=== PATIENT | female | born 1955 | race Caucasian/White ===

== ENCOUNTER 2018-02-09 12:08 | Emergency (ER) | payer MEDICARE ==
[~2018-02-09] VITALS: Ht 165.1 cm; Wt 90.7 kg
[~2018-02-09 12:08] MED LIST: ALBUTEROL2.5 MG/3 M IH; IBUPROFEN200 M1 PO; PREDNISONE20 MG PO; PRILOSEC40 MG PO; STOOL SOFTENER1 EAC2 PO; SYNTHROID100 MCG PO; TRAZODONE HCL100 MG PO; WELLBUTRIN SR150 MG PO
[2018-02-09] MEDS ORDERED: FLUOXETINE HCL20 MG PO (12:24)
[2018-02-09] MEDS ORDERED: SIMVASTATIN40 MG PO (12:24)
[2018-02-09] MEDS ORDERED: KETOROLAC TROME10 MG PO (13:04)
== END 2018-02-09 13:15 | disposition home or self-care (01) ==
LOC: ED 12:08
DX: M25.562 Pain in left knee (principal); J45.909 Unspecified asthma, uncomplicated; I10 Essential (primary) hypertension; Z86.73 Personal history of transient ischemic attack (TIA), and cerebral infarction without residual deficits; Z87.891 Personal history of nicotine dependence; Z88.0 Allergy status to penicillin; Z88.2 Allergy status to sulfonamides; Z79.899 Other long term (current) drug therapy
CPT/HCPCS: 93971; 99284

== ENCOUNTER → 2018-09-08 | Emergency (ER) | payer MEDICARE ==
[~2018-09-08] VITALS: Ht 165.1 cm; Wt 90.7 kg
[~2018-09-08] MED LIST changes: +ASPIRIN81 MG PO; +CARVEDILOL12.5 MG PO; +CLOPIDOGREL75 MG PO; +FLUOXETINE HCL20 MG PO; +KETOROLAC TROME10 MG PO; +LASIX20 MG PO; +LIPITOR20 MG PO; +LOSARTAN-HCTZ1 EAC2 PO; +NORVASC2.5 MG PO; +PANTOPRAZOLE SO40 MG PO; +PROZAC10 MG PO; +RESTASIS1 DROP OD; +SIMVASTATIN40 MG PO
--- NOTE | 2018-09-10 00:52 | EKG ---
[facility] [address] [facility] [place] [address] Signed Normal sinus rhythm Normal ECG No previous ECGs available Confirmed by LEONID HERNANDEZ MD ([id number]) on 09/10/2018 12:52:26 AM Electronically Signed By: LEONID HERNANDEZ MD 09/10/18 0052 PATIENT NAME: ZACH MERCADO Electrocardiogram DATE OF : 57 PHYSICIAN: LEONID HERNANDEZ MD REPORT #: [id number] REPORT IS CONFIDENTIAL AND NOT TO BE RELEASED WITHOUT AUTHORIZATION
== END ==
LOC: ED 20:08
DX: I20.0 Unstable angina (principal); I10 Essential (primary) hypertension; J44.9 Chronic obstructive pulmonary disease, unspecified; Z86.73 Personal history of transient ischemic attack (TIA), and cerebral infarction without residual deficits; Z87.891 Personal history of nicotine dependence; Z88.0 Allergy status to penicillin; Z88.2 Allergy status to sulfonamides; Z79.899 Other long term (current) drug therapy
CPT/HCPCS: 71045; 80053; 84484; 85025; 85379; 93005; 93010; 96374; 96375; 99285-25; J2405; J3010

== ENCOUNTER 2018-09-22 08:02 | Emergency (ER) | payer MEDICARE ==
[~2018-09-22] VITALS: Ht 165.1 cm; Wt 90.7 kg
[~2018-09-22 08:02] MED LIST changes: -ASPIRIN81 MG PO; -CARVEDILOL12.5 MG PO; -CLOPIDOGREL75 MG PO; -LIPITOR20 MG PO; -NORVASC2.5 MG PO; -PANTOPRAZOLE SO40 MG PO; -PROZAC10 MG PO
--- OUTSIDE RECORDS SUMMARY | 2018-09-22 08:06 | XMS ---
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 E.DVandana VISIT [facility] (12 MO.) [facility] [address] [place] [address] TOTAL 4 NOTE: Visits indicate total known visits. ED/C VISIT TRACKING (12 MO.) 09/22/2018 08:03 [facility] [place] TYPE: Emergency COMPLAINT: - CHEST PAIN/SOB 09/09/2018 01:43 [facility] TYPE: Emergency DIAGNOSES: - Pain, unspecified - Chest pain, unspecified 09/08/2018 20:09 [facility] Florez TYPE: Emergency COMPLAINT: - CHEST PAIN DIAGNOSES: - Allergy status to sulfonamides status - Allergy status to penicillin - Chronic obstructive pulmonary disease, unspecified - Personal history of transient ischemic attack (TIA), and cerebral infarction without residual deficits - Essential (primary) hypertension - Other [place] [facility] (current) drug therapy - Personal history of nicotine dependence - Precordial pain - Unstable angina 02/09/2018 12:[address] [facility] [place] TYPE: Emergency COMPLAINT: - L LEG PAIN/NO INJURY DIAGNOSES: - Other [place] [facility] (current) drug therapy - Allergy status to sulfonamides status - Allergy status to penicillin - Personal history of nicotine dependence - Personal history of transient ischemic attack (TIA), and cerebral infarction without residual deficits - Unspecified asthma, uncomplicated - Pain in left knee - Essential (primary) hypertension INPATIENT VISIT TRACKING (12 MO.) No inpatient visits to display in this time frame [email or web address]
[2018-09-22] MEDS ORDERED: NORVASC2.5 MG PO (10:28)
[2018-09-22] MEDS ORDERED: CARVEDILOL12.5 MG PO (10:28)
[2018-09-22] MEDS ORDERED: CLOPIDOGREL75 MG PO (10:29)
[2018-09-22] MEDS ORDERED: LIPITOR20 MG PO (10:29)
[2018-09-22] MEDS ORDERED: PROZAC10 MG PO (10:30)
--- NOTE | 2018-09-22 23:19 | EKG ---
[facility] [address] [facility] [place] [address] Signed Normal sinus rhythm Normal ECG When compared with ECG of 08-SEP-2018 20:14, No significant change was found Confirmed by LEONID HERNANDEZ MD ([id number]) on 09/22/2018 11:19:18 PM Electronically Signed By: LEONID HERNANDEZ MD 09/22/18 2319 PATIENT NAME: ZACH MERCADO Electrocardiogram DATE OF : 57 PHYSICIAN: LEONID HERNANDEZ MD REPORT #: [id number] REPORT IS CONFIDENTIAL AND NOT TO BE RELEASED WITHOUT AUTHORIZATION
[2018-10-22] MEDS ORDERED: ASPIRIN81 MG PO (02:35)
[2018-10-22] MEDS ORDERED: PANTOPRAZOLE SO40 MG PO (02:35)
== END 2018-09-22 10:30 | disposition short-term general hospital (02) ==
LOC: ED 08:02
DX: I20.0 Unstable angina (principal); I10 Essential (primary) hypertension; J44.9 Chronic obstructive pulmonary disease, unspecified; Z86.73 Personal history of transient ischemic attack (TIA), and cerebral infarction without residual deficits; Z87.891 Personal history of nicotine dependence; Z90.710 Acquired absence of both cervix and uterus; Z88.0 Allergy status to penicillin; Z88.2 Allergy status to sulfonamides; Z79.899 Other long term (current) drug therapy
CPT/HCPCS: 71045; 80053; 83880; 84484; 85025; 85379; 85610; 93005; 93010; 96374; 99285-25; J1644

== ENCOUNTER → 2018-10-22 | Emergency (ER) | payer MEDICARE ==
[~2018-10-22] VITALS: Ht 165.1 cm; Wt 90.7 kg
[~2018-10-22] MED LIST changes: +ASPIRIN81 MG PO; +CARVEDILOL12.5 MG PO; +CLOPIDOGREL75 MG PO; +LIPITOR20 MG PO; +NORVASC2.5 MG PO; +PANTOPRAZOLE SO40 MG PO; +PROZAC10 MG PO
--- OUTSIDE RECORDS SUMMARY | 2018-10-22 02:26 | XMS ---
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 - 2 Visits in 30 Days CARE PROVIDERS RAZA MYERS [facility] 09/23/2018-Current PHONE: [phone] Himanshu Wylie Current PHONE: Unknown Viktor has no Care Guidelines for this patient. Darleen [facility] (12 MO.) 2 [facility] [address] [place] [address] TOTAL 6 NOTE: Visits indicate total known visits. ED/UCC VISIT TRACKING (12 MO.) 10/22/2018 02:24 [facility] Florez TYPE: Emergency COMPLAINT: - CHEST PAIN, VOMITING [facility] TYPE: Emergency DIAGNOSES: - Chest Pain - Presence of coronary angioplasty implant and graft - Chest pain, unspecified 09/22/2018 08:03 [facility] [place] TYPE: Emergency COMPLAINT: - CHEST PAIN/SOB DIAGNOSES: - Unstable angina - Other [facility] ([facility] drug therapy - Allergy status to penicillin - Chronic obstructive pulmonary disease, unspecified - Allergy status to sulfonamides status - Acquired absence of both cervix and uterus - Personal history of transient ischemic attack (TIA), and cerebral infarction without residual deficits - Other chest pain - Essential (primary) hypertension - Personal history of nicotine dependence 09/09/2018 01:43 [facility] TYPE: Emergency DIAGNOSES: - Pain, unspecified - Chest pain, unspecified 09/08/2018 20:09 MICHEL[facility] Florez TYPE: Emergency COMPLAINT: - CHEST PAIN DIAGNOSES: - Allergy status to sulfonamides status - Allergy status to penicillin - Chronic obstructive pulmonary disease, unspecified - Personal history of transient ischemic attack (TIA), and cerebral infarction without residual deficits - Essential (primary) hypertension - 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 - Personal history of nicotine dependence - Precordial pain - Unstable angina 02/09/2018 12:10 [facility] Flore[facility] TYPE: Emergency COMPLAINT: - L LEG PAIN/NO INJURY DIAGNOSES: - Other [facility] (current) drug therapy - Allergy status to sulfonamides status - Allergy status to penicillin - Personal history of nicotine dependence - Personal history of transient ischemic attack (TIA), and cerebral infarction without residual deficits - Unspecified asthma, uncomplicated - Pain in left knee - Essential (primary) hypertension INPATIENT VISIT TRACKING (12 MO.) 09/22/2018 11:[facility] TYPE: Cardiology DIAGNOSES: - Chest pain, unspecified - Presence of coronary angioplasty implant and graft - Unstable angina [id number]
--- NOTE | 2018-10-23 07:51 | EKG ---
[facility] [address] [facility] [place], [place] [address] Signed Poor data quality Confirmed by LEONID HERNANDEZ MD ([id number]) on 10/23/2018 7:51:25 AM Electronically Signed By: LEONID HERNANDEZ MD 10/23/18 0751 PATIENT NAME: ZACH MERCADO Electrocardiogram DATE OF : 57 PHYSICIAN: LEONID HERNANDEZ MD REPORT #: [id number] REPORT IS CONFIDENTIAL AND NOT TO BE RELEASED WITHOUT AUTHORIZATION
--- NOTE | 2018-10-23 07:53 | EKG ---
[facility] [address] [facility] [place] [address] Signed Normal sinus rhythm Septal infarct ST \T\ T wave abnormality, consider inferior ischemia ST \T\ T wave abnormality, consider anterolateral ischemia Abnormal ECG When compared with ECG of 09/08/2018 Septal infarct, ST \T\ T wave abnormalities are new Confirmed by LEONID HERNANDEZ MD ([id number]) on 10/23/2018 7:53:06 AM Electronically Signed By: LEONID HERNANDEZ MD 10/23/18 0753 PATIENT NAME: ZACH MERCADO Electrocardiogram DATE OF : 57 PHYSICIAN: LEONID HERNANDEZ MD REPORT #: [id number] REPORT IS CONFIDENTIAL AND NOT TO BE RELEASED WITHOUT AUTHORIZATION
== END ==
LOC: ED 02:24
DX: I25.110 Atherosclerotic heart disease of native coronary artery with unstable angina pectoris (principal); I10 Essential (primary) hypertension; J44.9 Chronic obstructive pulmonary disease, unspecified; Z86.73 Personal history of transient ischemic attack (TIA), and cerebral infarction without residual deficits; Z87.891 Personal history of nicotine dependence; Z88.0 Allergy status to penicillin; Z88.2 Allergy status to sulfonamides; Z79.899 Other long term (current) drug therapy; Z79.82 Long term (current) use of aspirin
CPT/HCPCS: 36415; 71045; 80053; 84484; 85025; 93005; 93010; 96374; 96375; 99285-25; J2060; J2405; J2550

== ENCOUNTER 2019-04-28 13:33 | Emergency (ER) | payer MEDICARE ==
[~2019-04-28] VITALS: Ht 165.1 cm; Wt 87.5 kg
[2019-04-28] MEDS ORDERED: OLMESARTAN-HCT1 EAC1 PO (13:50)
[2019-04-28] MEDS ORDERED: LEVOTHYROXINE137 MCG PO (13:50)
[2019-04-28] MEDS ORDERED: SPIRONOLACTONE25 MG PO (13:50)
[2019-04-28] MEDS ORDERED: TRAZODONE HCL100 MG PO (13:50)
[2019-04-28] MEDS ORDERED: VENTOLIN HFA18 GM INH (13:50)
[2019-04-28] MEDS ORDERED: FLUOXETINE HCL20 MG PO (13:51)
--- NOTE | 2019-04-29 14:35 | EKG ---
[facility] [address] [facility] [place], [place] [address] Signed Normal sinus rhythm Normal ECG When compared with ECG of 28-APR-2019 13:32, (Unconfirmed) Nonspecific T wave abnormality, improved in Inferior leads Confirmed by TRUMAN PICKENS DO ([id number]) on 04/29/2019 2:35:06 PM Electronically Signed By: TRUMAN PICKENS DO 04/29/19 1435 PATIENT NAME: ZACH MERCADO Electrocardiogram DATE OF : 57 PHYSICIAN: TRUMAN PICKENS DO REPORT #: [id number] REPORT IS CONFIDENTIAL AND NOT TO BE RELEASED WITHOUT AUTHORIZATION
--- NOTE | 2019-04-29 14:35 | EKG ---
[facility] [address] [facility] [place] [address] Signed Normal sinus rhythm Normal ECG When compared with ECG of 22-OCT-2018 03:21, Criteria for Septal infarct are no longer present ST no longer depressed in Anterior leads Nonspecific T wave abnormality has replaced inverted T waves in Inferior leads T wave inversion no longer evident in Anterolateral leads Confirmed by TRUMAN PICKENS DO ([id number]) on 04/29/2019 2:34:59 PM Electronically Signed By: TRUMAN PICKENS DO 04/29/19 1435 PATIENT NAME: ZACH MERCADO Electrocardiogram DATE OF : 57 PHYSICIAN: TRUMAN PICKENS DO REPORT #: [id number] REPORT IS CONFIDENTIAL AND NOT TO BE RELEASED WITHOUT AUTHORIZATION
== END 2019-04-28 17:45 | disposition home or self-care (01) ==
LOC: ED 13:33
DX: R07.89 Other chest pain (principal); I10 Essential (primary) hypertension; J45.909 Unspecified asthma, uncomplicated; Z86.73 Personal history of transient ischemic attack (TIA), and cerebral infarction without residual deficits; J44.9 Chronic obstructive pulmonary disease, unspecified; I25.2 Old myocardial infarction; Z87.891 Personal history of nicotine dependence; Z88.0 Allergy status to penicillin; Z88.2 Allergy status to sulfonamides; Z79.899 Other long term (current) drug therapy; Z79.82 Long term (current) use of aspirin
CPT/HCPCS: 71045; 80053; 83735; 84484; 85025; 93005; 93010; 96374; 99285-25; J2270

== ENCOUNTER 2019-11-11 18:00 | Emergency (ER) | payer MEDICARE ==
[~2019-11-11] VITALS: Ht 165.1 cm; Wt 87.5 kg
[~2019-11-11 18:00] MED LIST changes: +LEVOTHYROXINE137 MCG PO; +OLMESARTAN-HCT1 EAC1 PO; +SPIRONOLACTONE25 MG PO; +VENTOLIN HFA18 GM INH
--- OUTSIDE RECORDS SUMMARY | 2019-11-11 18:02 | XMS ---
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 E.D. VISIT COUNT (12 MO.) 2 MICHELLE Talbot TOTAL 2 NOTE: Visits indicate total known visits. 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
--- NOTE | 2019-11-12 12:26 | EKG ---
[facility] [address] [facility] [place] [address] Signed Normal sinus rhythm Normal ECG When compared with ECG of 28-APR-2019 14:52, QT has lengthened Confirmed by LEONID HERNANDEZ MD ([id number]) on 11/12/2019 12:26:27 PM Electronically Signed By: LEONID HERNANDEZ MD 11/12/19 1226 PATIENT NAME: ZACH MERCADO Electrocardiogram DATE OF : 57 PHYSICIAN: LEONID HERNANDEZ MD REPORT #: [id number] REPORT IS CONFIDENTIAL AND NOT TO BE RELEASED WITHOUT AUTHORIZATION
== END 2019-11-11 22:07 | disposition home or self-care (01) ==
LOC: ED 18:00
DX: R55 Syncope and collapse (principal); R07.9 Chest pain, unspecified; I10 Essential (primary) hypertension; J45.909 Unspecified asthma, uncomplicated; Z86.73 Personal history of transient ischemic attack (TIA), and cerebral infarction without residual deficits; J44.9 Chronic obstructive pulmonary disease, unspecified; I25.2 Old myocardial infarction; Z87.891 Personal history of nicotine dependence; Z88.0 Allergy status to penicillin; Z88.2 Allergy status to sulfonamides; Z79.899 Other long term (current) drug therapy; Z79.82 Long term (current) use of aspirin
CPT/HCPCS: 71045; 80053; 83735; 84484; 85025; 93005; 93010; 96361; 96374; 99285-25; J2550; J7030

== ENCOUNTER 2020-10-24 07:47 | Day surgery (SDC) | payer MEDICARE ==
[~2020-10-24] VITALS: Ht 165.1 cm; Wt 87.3 kg
--- NOTE | 2020-10-24 10:15 | NUR ---
10/24/20 1015 Lyric Ruiz 1010 PATIENT ARRIVES TO PACU UNRESPONSIVE TO PAIN. RESP EVEN AND UNLABORED, MASK AT 10 LITERS. MASK OFF, NC ON AT 6 LITERS. 1015 PATIENT CONTINUES TO BE UNRESPONSIVE TO PAIN. NC DECREASED TO 4 LITERS.
--- NOTE | 2020-10-24 11:09 | OR ---
[facility] [address] [place], [place] [address] Signed DATE OF OPERATION: 10/24/2020 SURGEON: Santo Garcia MD PREOPERATIVE DIAGNOSES: 1. Diverticulosis. 2. Hemorrhoids. 3. Change in bowel habits with worsening constipation. POSTOPERATIVE DIAGNOSES: 1. Minimal to moderate sigmoid diverticulosis. 2. Minimal internal and external hemorrhoids. PROCEDURE: Colonoscopy biopsy. ESTIMATED BLOOD LOSS: None. 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 At that time, she had diverticulosis and some hemorrhoids. She describes a change in bowel habits with worsening constipation prior to starting Ultram. She thinks Ultram has made it worse. She tried MiraLAX just once a day and for some reason that gave her significant bowel movements. She is now using Colace each day. She had some other medical issues with her cataracts and so forth and finally made it back for a followup colonoscopy. She has a long list of medical issues, but did well with Versed and fentanyl previously. Consequently, we scheduled her in that regard. She has no family history of colon cancer or polyps. In the office, I gave Zach a pamphlet on colonoscopy and we looked at that together in detail. She understands the nature of the test along with the risks including, but not limited to gas bloating, crampy abdominal pain, bleeding, perforation requiring surgery, and missed diagnosis. She also understands the need for IV conscious sedation. She had expressed understanding and wished to proceed. DESCRIPTION OF PROCEDURE: Zach was taken into our endoscopy suite and placed in the left lateral decubitus position. She was given 7 mg of Versed and 125 mcg of fentanyl. Even then, we could advance the scope up through the left colon. She was simply too awaken in too much pain. Consequently, we had asked her anesthesia provider come and help us with Electronically Signed By: SANTO GARCIA MD 10/24/20 1109 PATIENT NAME: ZACH MERCADO OPERATIVE REPORT DATE OF : 57 REPORT #: [id number] PHYSICIAN: SANTO GARCIA MD PCP: MUSA STRAUSS MD REPORT IS CONFIDENTIAL AND NOT TO BE RELEASED WITHOUT AUTHORIZATION [facility] [address] [place], [place] [address] Signed increased monitoring and sedation with propofol. When she relaxed the scope passed quite nicely around into the cecum itself. Her prep was moderate. In the future, she should utilize a double bowel prep particularly with her history of constipation. The scope was then slowly withdrawn. We could see the appendiceal orifice and the ileocecal valve. Once again, the only pathology we found was diverticula in the sigmoid colon. They were minimal to moderate in number, minimal to moderate in size and scattered about. The rectum was unremarkable. Upon retroflexion of scope, she does have minimal internal hemorrhoid columns. Similarly, she has minimal external hemorrhoid columns as well on digital rectal exam. After this, the gas was suctioned out and the colonoscope removed. Zach tolerated the procedure quite well. RECOMMENDATIONS: Zach can return in 10 years for a repeat colonoscopy. She will need a double bowel prep in the future. She will need monitored anesthesia care in the future as well. MD HARRIETT Mccoy/DELTAL /[id number] cc: MD Santo Corrales MD Copies: MUSA STRAUSS MD, ANDREW L MD ~ Electronically Signed By: SANTO GARCIA MD 10/24/20 1109 PATIENT NAME: ZACH MERCADO OPERATIVE REPORT DATE OF : 57 REPORT #: [id number] PHYSICIAN: SANTO GARCIA MD PCP: MUSA STRAUSS MD REPORT IS CONFIDENTIAL AND NOT TO BE RELEASED WITHOUT AUTHORIZATION
== END 2020-10-24 10:50 | disposition home or self-care (01) ==
LOC: DS 07:47 → OPS 07:47
PROVIDERS: ATTEND Colon & Rectal Surgery
PROC: 0DJD8ZZ Inspection of Lower Intestinal Tract, Via Natural or Artificial Opening Endoscopic (ICD-10-PCS; principal; 2020-10-24 09:00)
DX: Z12.11 Encounter for screening for malignant neoplasm of colon (principal); K57.30 Diverticulosis of large intestine without perforation or abscess without bleeding; K64.4 Residual hemorrhoidal skin tags; K64.0 First degree hemorrhoids; I10 Essential (primary) hypertension; J44.9 Chronic obstructive pulmonary disease, unspecified; E03.9 Hypothyroidism, unspecified; E78.5 Hyperlipidemia, unspecified; Z86.73 Personal history of transient ischemic attack (TIA), and cerebral infarction without residual deficits; Z72.0 Tobacco use; Z79.82 Long term (current) use of aspirin; Z88.5 Allergy status to narcotic agent; Z88.0 Allergy status to penicillin; Z88.2 Allergy status to sulfonamides; Z91.09 Other allergy status, other than to drugs and biological substances
CPT/HCPCS: G0105; J2250; J2704; J3010

== ENCOUNTER 2021-01-09 22:03 | Emergency (ER) | payer MEDICARE, SELFPAY ==
[~2021-01-09] VITALS: Ht 292.1 cm; Wt 85.7 kg
--- OUTSIDE RECORDS SUMMARY | 2021-01-09 22:06 | XMS ---
PreManage Notification: ZACH MERCADO Security Conference Specialist Events No recent Security Events currently on file CRITERIA MET - History of Sepsis Dx - PD[employer] CARE PROVIDERS RAZA MYERS [facility] 09/23/2018-Current PHONE: [phone] MUSA STRAUSS [facility] 10/22/2018-Current PHONE: [phone] Viktor has no Care Guidelines for this patient. E.DVandana VISIT COUNT (12 MO.) 1 [facility] TOTAL 2 NOTE: Visits indicate total known visits. ED/UCC VISIT TRACKING (12 MO.) 01/09/2021 22:[address] [facility] [place] TYPE: Emergency COMPLAINT: - CHEST PAIN [facility]/16/2020 14:[facility] DIAGNOSES: - Shortness of breath - Adverse effect of unspecified anesthetic, initial encounter - Chest Pain - Shortness of breath INPATIENT VISIT TRACKING (12 MO.) No inpatient visits to display in this time frame [email or web address]
--- NOTE | 2021-01-10 13:54 | EKG ---
[facility] [address] [facility] [place], [place] [address] Signed Normal sinus rhythm Septal infarct , age undetermined Abnormal ECG When compared with ECG of 11-NOV-2019 18:04, No significant change was found Confirmed by TRUMAN PICKENS DO ([id number]) on 01/10/2021 1:53:47 PM Electronically Signed By: TRUMAN PICKENS DO 01/10/21 1354 PATIENT NAME: ARLEY MERCADODilan COLLINSY Electrocardiogram DATE OF : 57 PHYSICIAN: TRUMAN PICKENS DO REPORT #: [id number] REPORT IS CONFIDENTIAL AND NOT TO BE RELEASED WITHOUT AUTHORIZATION
== END 2021-01-10 01:45 | disposition home or self-care (01) ==
LOC: ED 22:03
DX: R07.2 Precordial pain (principal); J45.909 Unspecified asthma, uncomplicated; I10 Essential (primary) hypertension; J44.9 Chronic obstructive pulmonary disease, unspecified; I25.10 Atherosclerotic heart disease of native coronary artery without angina pectoris; I25.2 Old myocardial infarction; F17.200 Nicotine dependence, unspecified, uncomplicated; Z88.0 Allergy status to penicillin; Z88.5 Allergy status to narcotic agent; Z88.2 Allergy status to sulfonamides; Z91.048 Other nonmedicinal substance allergy status; Z79.899 Other long term (current) drug therapy; Z79.82 Long term (current) use of aspirin
CPT/HCPCS: 71045; 80053; 83735; 83880; 84484; 85025; 93005; 93010; 96374; 96375; 99285-25; J1885; J2765

== ENCOUNTER 2022-09-14 20:43 | Emergency (ER) | payer MEDICARE ==
[~2022-09-14] VITALS: Ht 165.1 cm; Wt 85.7 kg
--- OUTSIDE RECORDS SUMMARY | 2022-09-14 20:46 | XMS ---
PreManage Notification: ZACH MERCADO Security Manager Sterile Events No recent Security Events currently on file CRITERIA MET - [facility] CARE PROVIDERS RAZA MYERS [facility] 09/23/2018-Current PHONE: Unknown MUSA STRAUSS [facility] 01/24/2021-Current PHONE: Unknown Leila Lopez-Kip Nurse Practitioner: Family Current PHONE: [phone] Viktor has no Care Guidelines for this patient. E.D. VISIT COUNT (12 MO.) 1 MICHELLE Talbot TOTAL 1 NOTE: Visits indicate total known visits. ED/UCC VISIT TRACKING (12 MO.) 09/14/2022 20:44 [facility] [place] TYPE: Emergency COMPLAINT: - CHEST PAIN INPATIENT VISIT TRACKING (12 MO.) No inpatient visits to display in this time frame [email or web address]
--- NOTE | 2022-09-15 16:00 | EKG ---
[facility] [address] [facility] [place] [address] Signed Normal sinus rhythm Septal infarct (cited on or before 09-JAN-2021) Abnormal ECG When compared with ECG of 14-SEP-2022 20:45, (Unconfirmed) No significant change was found Confirmed by LEONID HERNANDEZ MD ([id number]) on 09/15/2022 3:59:46 PM Electronically Signed By: LEONID HERNANDEZ MD 09/15/22 1600 PATIENT NAME: ZACH MERCADO Electrocardiogram DATE OF : 57 PHYSICIAN: LEONID HERNANDEZ MD REPORT #: [id number] REPORT IS CONFIDENTIAL AND NOT TO BE RELEASED WITHOUT AUTHORIZATION
--- NOTE | 2022-09-15 16:00 | EKG ---
[facility] [address] [facility] [place] [address] Signed Normal sinus rhythm Septal infarct , age undetermined Abnormal ECG No previous ECGs available Confirmed by LEONID HERNANDEZ MD ([id number]) on 09/15/2022 3:59:43 PM Electronically Signed By: LEONID HERNANDEZ MD 09/15/22 1600 PATIENT NAME: ZACH MERCADO Electrocardiogram DATE OF : 57 PHYSICIAN: LEONID HERNANDEZ MD REPORT #: [id number] REPORT IS CONFIDENTIAL AND NOT TO BE RELEASED WITHOUT AUTHORIZATION
== END 2022-09-15 00:25 | disposition home or self-care (01) ==
LOC: ED 20:43
DX: I20.9 Angina pectoris, unspecified (principal); I10 Essential (primary) hypertension; J44.9 Chronic obstructive pulmonary disease, unspecified; I25.10 Atherosclerotic heart disease of native coronary artery without angina pectoris; I25.2 Old myocardial infarction; F17.200 Nicotine dependence, unspecified, uncomplicated; Z88.0 Allergy status to penicillin; Z88.2 Allergy status to sulfonamides; Z88.5 Allergy status to narcotic agent; Z91.048 Other nonmedicinal substance allergy status; Z79.899 Other long term (current) drug therapy; Z79.82 Long term (current) use of aspirin
CPT/HCPCS: 36415; 71045; 80053; 83735; 84484; 85025; 93005; 93010; 99285-25

== ENCOUNTER 2022-11-14 16:23 | Emergency (ER) | payer MEDICARE ==
[~2022-11-14] VITALS: Ht 165.1 cm; Wt 101.1 kg
[2022-11-14] MEDS ORDERED: RANOLAZINE ER500 MG PO (16:45)
--- NOTE | 2022-11-15 16:16 | EKG ---
[facility] [address] [facility] [place] [address] Signed Normal sinus rhythm Nonspecific ST abnormality Abnormal ECG When compared with ECG of 14-SEP-2022 23:08, Criteria for Septal infarct are no longer present Confirmed by LEONID HERNANDEZ MD ([id number]) on 11/15/2022 4:15:57 PM Electronically Signed By: LEONID HERNANDEZ MD 11/15/22 1616 PATIENT NAME: ROGELIOZACH Electrocardiogram DATE OF : 57 PHYSICIAN: LEONID HERNANDEZ MD REPORT #: [id number] REPORT IS CONFIDENTIAL AND NOT TO BE RELEASED WITHOUT AUTHORIZATION
== END 2022-11-14 17:54 | disposition home or self-care (01) ==
LOC: ED 16:23
DX: R07.9 Chest pain, unspecified (principal); I10 Essential (primary) hypertension; J45.909 Unspecified asthma, uncomplicated; J44.9 Chronic obstructive pulmonary disease, unspecified; I25.2 Old myocardial infarction; I25.10 Atherosclerotic heart disease of native coronary artery without angina pectoris; F17.200 Nicotine dependence, unspecified, uncomplicated; Z88.0 Allergy status to penicillin; Z88.2 Allergy status to sulfonamides; Z88.5 Allergy status to narcotic agent; Z91.048 Other nonmedicinal substance allergy status; Z79.899 Other long term (current) drug therapy; Z79.82 Long term (current) use of aspirin
CPT/HCPCS: 36415; 71045; 80053; 83735; 84484; 85025; 93005; 93010; 99285-25

== ENCOUNTER 2024-06-12 15:47 | Emergency (ER) | payer MEDICARE ==
[~2024-06-12] VITALS: Ht 165.1 cm; Wt 96.8 kg
[~2024-06-12 15:47] MED LIST changes: +RANOLAZINE ER500 MG PO
[2024-06-12] MEDS ORDERED: NITROGLYCERIN PACKET TOP ONE (16:00)
[2024-06-12 16:06] LABS: BASOPHILS 0.8 % (0-2); EOSINOPHILS 6.1 % (0-6); HEMATOCRIT 35.5 % (35.0-50.0); HEMOGLOBIN 12.1 g/dL (12.0-18.0); LYMPHOCYTES 15.8 % (24-44); MCH 30.7 (27-36); MCHC 33.9 g/dl (30-36); MCV 90.5 fl (81-99); MONOCYTES 9.2 % (0-12); NEUTROPHILS 68.1 % (39-80); PLATELET COUNT 280 K/uL (140-440); RBC 3.92 M/ul (4.3-5.7)
[2024-06-12 16:16] LABS: PARTIAL THROMBOPLASTIN TIME 26.9 Sec (22.9-41.3)
[2024-06-12 16:17] LABS: PROTIME 12.5 Sec (11.2-14.2)
[2024-06-12 16:29] LABS: ALBUMIN 3.4 g/dL (3.4-5.0); ALBUMIN/GLOBULIN RATIO 0.94 (1.1-2.4); ANION GAP 13.5 (7-21); BILIRUBIN, TOTAL 0.3 ng/dL (0.2-1.0); BUN/CREATININE RATIO 15.68 (6.0-28.6); CALCIUM 9.3 mg/dL (8.5-10.1); CREATININE, SERUM 1.02 mg/dL (0.55-1.02); MAGNESIUM 2.1 mg/dL (1.8-2.4); POTASSIUM 4.5 mmol/L (3.5-5.1)
[2024-06-12 18:48] VITALS: BP 164/88
--- NOTE | 2024-06-14 07:48 | EKG ---
[facility] [place] [facility] [address] [facility] [place] [address] Signed Normal sinus rhythm Nonspecific ST abnormality Abnormal ECG When compared with ECG of 14-NOV-2022 16:24, No significant change was found Confirmed by Lili Lynn MD () on 06/14/2024 7:48:42 AM Electronically Signed By: LILI LYNN MD 06/14/24 0748 PATIENT NAME: ZACH MERCADO LEIGHANN Electrocardiogram DATE OF : 57 PHYSICIAN: LILI LYNN MD REPORT #: [id number] REPORT IS CONFIDENTIAL AND NOT TO BE RELEASED WITHOUT AUTHORIZATION
== END 2024-06-12 19:03 | disposition home or self-care (01) ==
LOC: ED 15:47
PROVIDERS: Emergency Medicine
DX: R07.9 Chest pain, unspecified (principal); I10 Essential (primary) hypertension; I25.2 Old myocardial infarction; J44.9 Chronic obstructive pulmonary disease, unspecified; I25.10 Atherosclerotic heart disease of native coronary artery without angina pectoris; F17.200 Nicotine dependence, unspecified, uncomplicated; Z86.73 Personal history of transient ischemic attack (TIA), and cerebral infarction without residual deficits; Z95.5 Presence of coronary angioplasty implant and graft; Z88.0 Allergy status to penicillin; Z88.2 Allergy status to sulfonamides; Z88.5 Allergy status to narcotic agent; Z91.09 Other allergy status, other than to drugs and biological substances; Z79.899 Other long term (current) drug therapy; Z79.890 Hormone replacement therapy; Z79.82 Long term (current) use of aspirin
CPT/HCPCS: 36415; 71045; 80053; 83735; 83880; 84484; 85025; 85610; 85730; 93005; 93010; 99285

== ENCOUNTER 2025-03-10 17:04 | Emergency (ER) | payer MEDICARE ==
[~2025-03-10] VITALS: Ht 165.1 cm; Wt 88.8 kg
[2025-03-10 18:24] LABS: BASOPHILS 0.3 % (0.1-1.2); EOSINOPHILS 1.7 % (0.7-5.8); LYMPHOCYTES 13.9 % (19.3-51.7); MCH 29.0 PG (25.6-32.2); MCHC 33.2 g/dL (32.2-35.5); MCV 87.5 fL (79.4-94.8); MONOCYTES 9.6 % (4.7-12.5); NEUTROPHILS 73.9 % (34.0-71.1); RBC 4.31 M/uL (3.93-5.22)
[2025-03-10 18:33] LABS: ALT (SGPT) 25.0 U/L (14-59); AST (SGOT) 13.0 U/L (15-37); GLOMERULAR FILTRATION RATE,EST 54.0 mL/min (>60); PROTEIN, TOTAL 7.3 g/dL (6.4-8.2); UREA NITROGEN 9.0 mg/dL (7-18)
[2025-03-10] MEDS ORDERED: HYDROmorphone HCL 1 MG/ML SYR IV ONE (18:45)
[2025-03-10 18:50] LABS: BLOOD/HGB, URINE NEGATIVE (Negative); KETONE, URINE TRACE (Negative); LEUK ESTERASE, URINE SMALL (negative); NITRITE, URINE POSITIVE (negative)
[2025-03-10 19:04] LABS: BACTERIA, URINE 2+ /hpf (negative); CASTS, URINE NONE SEEN \\lpf; CRYSTALS, URINE NONE SEEN (0-1+)
[2025-03-10 19:05] LABS: REFLEX CULTURE, URINE No (No)
[2025-03-10 19:09] LABS: LACTIC ACID, BLOOD 0.8 mmol/L (0.4-2.0)
[2025-03-10] MEDS ORDERED: HYDROmorphone HCL 1 MG/ML SYR IV PRN (19:45)
[2025-03-10] MEDS ORDERED: HYDROCODON-ACE1 EA10 PO (21:31)
[2025-03-10] MEDS ORDERED: METRONIDAZOLE500 MG PO (21:31)
[2025-03-10] MEDS ORDERED: LACTULOSE10 GM/15 M PO (21:31)
[2025-03-10] MEDS ORDERED: ONDANSETRON ODT8 MG PO (21:31)
[2025-03-10] MEDS ORDERED: LEVOFLOXACIN500 MG PO (21:31)
[2025-03-10] MEDS ORDERED: ONDANSETRON 4 MG HOME.PACK SL ONE (21:45)
[2025-03-10] MEDS ORDERED: HYDROCODONE BIT/ACETAMINOPHEN 5/325 MG 1 TAB HOME.PACK PO ONE (21:45)
[2025-03-10 22:36] VITALS: BP 144/67
== END 2025-03-10 22:38 | disposition home or self-care (01) ==
LOC: ED 17:04
PROVIDERS: Emergency Medicine
DX: K57.32 Diverticulitis of large intestine without perforation or abscess without bleeding (principal); J18.9 Pneumonia, unspecified organism; N39.0 Urinary tract infection, site not specified; F17.200 Nicotine dependence, unspecified, uncomplicated; J45.909 Unspecified asthma, uncomplicated; I10 Essential (primary) hypertension; J44.9 Chronic obstructive pulmonary disease, unspecified; Z88.0 Allergy status to penicillin; Z88.2 Allergy status to sulfonamides; Z88.5 Allergy status to narcotic agent; Z79.899 Other long term (current) drug therapy
CPT/HCPCS: 36415; 74177; 80053; 81001; 83605; 83690; 85025; 96375; 96376; 99284-25; A9270; J0696; J1171; J2405; Q9967